=== PATIENT | female | born 1990 | race African-American/Black ===

== ENCOUNTER 2017-01-29 12:43 | Emergency (ER) | payer SELFPAY ==
[~2017-01-29] VITALS: Ht 170.2 cm; Wt 99.8 kg
[2017-01-29 12:55] VITALS: BP 123/60
--- NOTE | 2017-01-29 12:58 | PHYS DOC ---
Adult General Chief Complaint Chief Complaint: FOOT INJURY PAIN [facility] HPI Patient is a 26 year old female presents the ED complaining of left ankle injury 2 days. Patient states she was walking down stairs and twisted her left ankle. States she has some swelling. Describes the pain as sharp. Rates the pain as 8/10. Patient able to ambulate without assistance. Denies head/neck injury, LOC, vision changes, nausea/vomiting, chest pain or shortness of breath. Review of Systems Review of Systems Constitutional: Denies fever or chills [] Eyes: Denies change in visual acuity, redness, or eye pain [] HENT: Denies nasal congestion or sore throat [] Respiratory: Denies cough or shortness of breath [] Cardiovascular: No additional information not addressed in HPI [] GI: Denies abdominal pain, nausea, vomiting, bloody stools or diarrhea [] : Denies dysuria or hematuria [] Musculoskeletal: Complains of ankle/foot pain. Denies back pain. [] Integument: Denies rash or skin lesions [] Neurologic: Denies headache, focal weakness or sensory changes [] Endocrine: Denies polyuria or polydipsia [] All other systems were reviewed and found to be within normal limits, except as documented in this note. Physical Exam Physical Exam Constitutional: Well developed, well nourished, no acute distress, non-toxic appearance. [] HENT: Normocephalic, atraumatic, bilateral external ears normal, oropharynx moist, no oral exudates, nose normal. [] Eyes: PERRLA, EOMI, conjunctiva normal, no discharge. [] Neck: Normal range of motion, no tenderness, supple, no stridor. [] Cardiovascular:Heart rate regular rhythm, no murmur [] Lungs & Thorax: Bilateral breath sounds clear to auscultation [] Abdomen: Bowel sounds normal, soft, no tenderness, no masses, no pulsatile masses. [] Skin: Warm, dry, no erythema, no rash. [] Back: No tenderness, no CVA tenderness. [] Extremities: MILD LEFT LATERAL ANKLE/ FOOT TENDERNESS AND SWELLING. NO OVERLYING SKIN CHANGES., no cyanosis, no clubbing, ROM intact, no edema. [] Neurologic: Alert and oriented X 3, normal motor function, normal sensory function, no focal deficits noted. [] Psychologic: Affect normal, judgement normal, mood normal. [] Current Patient Data Vital Signs Vital Signs Date Time Temp Pulse Resp B/P (MAP) Pulse Ox O2 Delivery O2 Flow Rate FiO2 01/29/17 12:55 98.2 78 18 100 Room Air 98.2 Lab Values Laboratory Tests Test 01/29/17 13:23 POC Urine HCG, Qualitative Hcg positive (Negative) EKG EKG PROCEDURE: ANKLE LEFT 3V Three-view left ankle radiographs 01/29/2017 Clinical history: Fall downstairs with left ankle pain. AP, lateral and oblique digital radiographs of the left ankle were obtained. The left ankle mortise is intact. No fracture or dislocation of the left ankle is seen. Mild to moderate degenerative changes are seen involving the left ankle joint. Impression: No fracture or dislocation of the left ankle is seen. []PROCEDURE: FOOT LEFT 3V Three-view left foot radiographs 01/29/2017 Clinical history: Left foot pain post injury. AP, lateral and oblique digital radiographs of the left foot were obtained. No fracture or dislocation of the left foot is seen. Mild degenerative changes are seen involving the first MTP joint. Impression: No fracture or dislocation of the left foot is seen. Radiology/Procedures Radiology/Procedures []X-ray negative for acute injury. Patient's pain improved. Zeeshan bandage placed. Neurovascular intact post placement. Patient found to have positive test. Signed consent for X-ray. Aware of risks. Patient shielded. Patient complains of no related symptoms. States she has follow-up with an OB/ [facility]. Provided contact information and education. Provided community resource handout. Discussed reasons to return to the ED. Patient understands and agrees with plan. Course & Med Decision Making Course & Med Decision Making Pertinent Labs and Imaging studies reviewed. (See chart for details) [] Dragon Disclaimer Dragon Disclaimer This electronic medical record was generated, in whole or in part, using a voice recognition dictation system. Departure Departure Impression: Primary Impression: Ankle sprain Additional Impression: Disposition: 01 HOME, SELF-CARE Condition: IMPROVED Referrals: JOHNATHON BECKER MD, SARASWATHI MD Patient Instructions: Ankle Sprain, Problem Qualifiers RUBEN BERRY Jan 29, 2017 12:58
--- NOTE | 2017-01-29 15:47 | RAD ---
Three-view left ankle radiographs 01/29/2017 Clinical history: Fall downstairs with left ankle pain. AP, lateral and oblique digital radiographs of the left ankle were obtained. The left ankle mortise is intact. No fracture or dislocation of the left ankle is seen. Mild to moderate degenerative changes are seen involving the left ankle joint. Impression: No fracture or dislocation of the left ankle is seen.
--- NOTE | 2017-01-29 15:49 | RAD ---
Three-view left foot radiographs 01/29/2017 Clinical history: Left foot pain post injury. AP, lateral and oblique digital radiographs of the left foot were obtained. No fracture or dislocation of the left foot is seen. Mild degenerative changes are seen involving the first MTP joint. Impression: No fracture or dislocation of the left foot is seen.
== END 2017-01-29 15:06 | disposition home or self-care (01) ==
LOC: ER 12:43
DX: S93.402A Sprain of unspecified ligament of left ankle, initial encounter (principal); Z33.1 Pregnant state, incidental; X58.XXXA Exposure to other specified factors, initial encounter; Y93.01 Activity, walking, marching and hiking; Y92.89 Other specified places as the place of occurrence of the external cause; Y99.8 Other external cause status
CPT/HCPCS: 73610; 73630; 81025; 99284